=== PATIENT | male | born 1960 | race Caucasian/White ===

== ENCOUNTER 2016-10-26 17:37 | Emergency (ER) | payer OTHER ==
[~2016-10-26] VITALS: Ht 167.6 cm; Wt 49.9 kg
[~2016-10-26 17:37] MED LIST: ANAPROX DS550 MG PO; AUGMENTIN 875 M1 TAB PO; CIPRODEX 0.3%-7.5 ML OT; CLARITIN10 MG PO; MOTRIN800 MG PO
[2016-10-26] MEDS ORDERED: SERTRALINE HYD100 MG PO (17:57)
[2016-10-26] MEDS ORDERED: VENLAFAXINE HY150 M2 PO (17:57)
[2016-10-26] MEDS ORDERED: BUPROPION HCL150 M1 PO (17:57)
[2016-10-26] MEDS ORDERED: MIRTAZAPINE30 M2 PO (17:57)
== END 2016-10-26 19:53 | disposition home or self-care (01) ==
LOC: ED 17:37
DX: S61.032A Puncture wound without foreign body of left thumb without damage to nail, initial encounter (principal); Z29.12 Encounter for prophylactic antivenin; Z79.899 Other long term (current) drug therapy; W22.8XXA Striking against or struck by other objects, initial encounter; Y93.89 Activity, other specified; Y92.89 Other specified places as the place of occurrence of the external cause; Y99.9 Unspecified external cause status

== ENCOUNTER 2017-11-21 13:29 | Emergency (ER) | payer OTHER ==
[~2017-11-21] VITALS: Ht 167.6 cm; Wt 5.4 kg
[~2017-11-21 13:29] MED LIST changes: +BUPROPION HCL150 M1 PO; +MIRTAZAPINE30 M2 PO; +SERTRALINE HYD100 MG PO; +VENLAFAXINE HY150 M2 PO
[2017-11-21 14:09] LABS: BASO % 0.9 % (0.0-1.0); EOS % 0.9 % (1.0-4.0); HEMOGLOBIN 13.6 g/dl (14.0-18.0); LYMPH # 0.6 10*3/uL (1.3-4.4); MEAN CELL VOLUME 97.1 fl (80.0-94.0); MEAN PLATELET VOLUME 9.3 fl (9.6-12.3); MONO # 0.4 10*3/uL (0.1-1.0); MONO % 9.4 % (3.0-9.0); NEUT # 3.4 10*3/uL (2.3-7.9); NEUT % 74.6 % (47.0-73.0); PLATELET COUNT AUTOMATED 334 10*3/uL (130-400); RED BLOOD COUNT 4.12 10*6/uL (4.50-5.90); RED CELL DISTRI WIDTH 13.7 % (0-14.5); WHITE BLOOD COUNT 4.5 10*3/uL (4.8-10.8)
[2017-11-21 14:19] LABS: ACT PARTIAL THROMBO TIME 26.9 SECONDS (20.8-31.5)
[2017-11-21 14:27] LABS: ALBUMIN 4.3 gm/dl (3.1-4.5); ALKALINE PHOSPHATASE 78 U/L (45-117); BUN 7 mg/dl (7-24); CHLORIDE 103 mmol/L (98-107); CREATININE 0.79 mg/dL (0.70-1.30); POTASSIUM 3.7 mmol/L (3.5-5.1); SGOT/AST 16 IU/L (3-35); SGPT/ALT 20 U/L (12-78); SODIUM 139 mmol/L (136-145); TOTAL PROTEIN 7.7 gm/dL (6.4-8.2)
[2017-11-21 14:33] LABS: TROPONIN I < 0.015 ng/ml (<0.045)
== END 2017-11-21 18:35 | disposition short-term general hospital (02) ==
LOC: ED 13:29
PROVIDERS: Emergency Medicine
DX: G45.9 Transient cerebral ischemic attack, unspecified (principal); R53.1 Weakness; Z79.899 Other long term (current) drug therapy

== ENCOUNTER 2017-12-03 14:15 | Emergency (ER) | payer OTHER ==
[~2017-12-03] VITALS: Ht 170.1 cm; Wt 509.8 kg
[2017-12-03] MEDS ORDERED: SIMVASTATIN20 MG PO (15:53)
[2017-12-03] MEDS ORDERED: ASPIRIN CHEWABL81 MG PO (15:54)
[2017-12-03] MEDS ORDERED: TOPROL XL25 MG PO (15:54)
[2017-12-03 16:37] LABS: BASO % 0.5 % (0.0-1.0); EOS # 0.1 10*3/uL (0.0-0.4); EOS % 1.2 % (1.0-4.0); HEMATOCRIT 39.6 % (42.0-52.0); HEMOGLOBIN 12.9 g/dl (14.0-18.0); LYMPH # 0.8 10*3/uL (1.3-4.4); LYMPH % 12.3 % (27.0-41.0); MEAN CELL VOLUME 99.5 fl (80.0-94.0); MEAN CORPUSCULAR HGB 32.4 pg (27.0-31.0); MEAN CORPUSCULAR HGB CONC 32.6 g/dl (33.0-37.0); MEAN PLATELET VOLUME 8.7 fl (9.6-12.3); MONO # 0.6 10*3/uL (0.1-1.0); MONO % 9.5 % (3.0-9.0); NEUT # 4.6 10*3/uL (2.3-7.9); NEUT % 76.2 % (47.0-73.0); PLATELET COUNT AUTOMATED 296 10*3/uL (130-400); RED BLOOD COUNT 3.98 10*6/uL (4.50-5.90); RED CELL DISTRI WIDTH 13.5 % (0-14.5); WHITE BLOOD COUNT 6.1 10*3/uL (4.8-10.8)
[2017-12-03 16:46] LABS: ACT PARTIAL THROMBO TIME 25.7 SECONDS (20.8-31.5)
[2017-12-03 16:49] LABS: BUN 8 mg/dl (7-24); CHLORIDE 102 mmol/L (98-107); POTASSIUM 4.2 mmol/L (3.5-5.1); SODIUM 139 mmol/L (136-145)
== END 2017-12-03 19:13 | disposition short-term general hospital (02) ==
LOC: ED 14:15
PROVIDERS: Emergency Medicine
DX: I63.9 Cerebral infarction, unspecified (principal); Z79.899 Other long term (current) drug therapy; Z79.82 Long term (current) use of aspirin; Z86.73 Personal history of transient ischemic attack (TIA), and cerebral infarction without residual deficits

== ENCOUNTER 2017-12-23 16:52 | Inpatient (IN) | payer OTHER ==
[~2017-12-23] VITALS: Ht 167.6 cm; Wt 51.3 kg
[~2017-12-23 16:52] MED LIST changes: +ASPIRIN CHEWABL81 MG PO; +SIMVASTATIN20 MG PO; +TOPROL XL25 MG PO
[2017-12-23 16:55] VITALS: BP 145/80
[2017-12-23] MEDS ORDERED: PLAVIX75 M1 PO (17:02)
[2017-12-23] MEDS ORDERED: GARLIC1 EAC1 PO (17:03)
[2017-12-23 17:36] LABS: BASO % 0.8 % (0.0-1.0); EOS % 1.1 % (1.0-4.0); HEMATOCRIT 38.9 % (42.0-52.0); HEMOGLOBIN 13.4 g/dl (14.0-18.0); LYMPH # 0.6 10*3/uL (1.3-4.4); MEAN CORPUSCULAR HGB 33.1 pg (27.0-31.0); MEAN CORPUSCULAR HGB CONC 34.4 g/dl (33.0-37.0); MEAN PLATELET VOLUME 9.2 fl (9.6-12.3); MONO # 0.4 10*3/uL (0.1-1.0); MONO % 11.3 % (3.0-9.0); NEUT # 2.7 10*3/uL (2.3-7.9); NEUT % 71.3 % (47.0-73.0); PLATELET COUNT AUTOMATED 304 10*3/uL (130-400); RED BLOOD COUNT 4.05 10*6/uL (4.50-5.90); RED CELL DISTRI WIDTH 13.2 % (0-14.5); WHITE BLOOD COUNT 3.8 10*3/uL (4.8-10.8)
[2017-12-23 17:46] LABS: ACT PARTIAL THROMBO TIME 25.9 SECONDS (20.8-31.5)
[2017-12-23 17:52] LABS: ALBUMIN 4.3 gm/dl (3.1-4.5); ALKALINE PHOSPHATASE 62 U/L (45-117); BUN 19 mg/dl (7-24); CHLORIDE 91 mmol/L (98-107); LIPASE 148 U/L (73-393); POTASSIUM 4.3 mmol/L (3.5-5.1); SGOT/AST 19 IU/L (3-35); SGPT/ALT 31 U/L (12-78); SODIUM 128 mmol/L (136-145); TOTAL PROTEIN 7.6 gm/dL (6.4-8.2); TROPONIN I < 0.015 ng/ml (<0.045)
[2017-12-23 19:45] VITALS: BP 134/74
[2017-12-23 20:00] VITALS: BP 134/74
[2017-12-23] MEDS ORDERED: VITAMIN B-650 M1 PO (21:00)
[2017-12-23] MEDS ORDERED: VITAMIN B-12500 MC3 SL (21:03)
[2017-12-24] VITALS: BP 109/77
[2017-12-24 06:42] LABS: EOS # 0.1 10*3/uL (0.0-0.4); EOS % 1.9 % (1.0-4.0); HEMATOCRIT 38.2 % (42.0-52.0); LYMPH # 0.8 10*3/uL (1.3-4.4); LYMPH % 26.1 % (27.0-41.0); MEAN PLATELET VOLUME 9.4 fl (9.6-12.3); MONO # 0.5 10*3/uL (0.1-1.0); MONO % 14.8 % (3.0-9.0); NEUT # 1.7 10*3/uL (2.3-7.9); NEUT % 55.9 % (47.0-73.0); PLATELET COUNT AUTOMATED 296 10*3/uL (130-400); RED BLOOD COUNT 3.94 10*6/uL (4.50-5.90); RED CELL DISTRI WIDTH 13.3 % (0-14.5); WHITE BLOOD COUNT 3.1 10*3/uL (4.8-10.8)
[2017-12-24 07:13] LABS: BUN 14 mg/dl (7-24); CHLORIDE 98 mmol/L (98-107); CHOLESTEROL 116 mg/dL (<200); CREATININE 0.67 mg/dL (0.70-1.30); HDL CHOLESTEROL 34 mg/dl (40-60); LDL CHOLESTEROL 63 mg/dL (9-159); PHOSPHOROUS 3.7 mg/dL (2.5-4.9); POTASSIUM 4.5 mmol/L (3.5-5.1); SODIUM 134 mmol/L (136-145); TRIGLYCERIDES 94 mg/dl (<150); VLDL CHOLESTEROL 19 mg/dL (6-40)
[2017-12-24 07:56] LABS: VITAMIN D, 25-HYDROXY 24.3 ng/mL (30-100)
[2017-12-24 08:00] VITALS: BP 122/70
== END 2017-12-24 10:19 | disposition home or self-care (01) | DRG 641 ==
LOC: ED 16:52 → EDHOLD 18:25 → 4E 19:20
PROVIDERS: Emergency Medicine; Internal Medicine
DX: E87.1 Hypo-osmolality and hyponatremia (principal); R65.10 Systemic inflammatory response syndrome (SIRS) of non-infectious origin without acute organ dysfunction; E83.41 Hypermagnesemia; R73.9 Hyperglycemia, unspecified; D72.810 Lymphocytopenia; D53.9 Nutritional anemia, unspecified; I10 Essential (primary) hypertension; E78.5 Hyperlipidemia, unspecified; Z86.73 Personal history of transient ischemic attack (TIA), and cerebral infarction without residual deficits; Z79.899 Other long term (current) drug therapy; Z83.3 Family history of diabetes mellitus; Z80.9 Family history of malignant neoplasm, unspecified

== ENCOUNTER → 2018-01-01 | Outpatient (CLI) | payer OTHER ==
[~2018-01-01] MED LIST changes: +GARLIC1 EAC1 PO; +PLAVIX75 M1 PO; +VITAMIN B-12500 MC3 SL; +VITAMIN B-650 M1 PO
[2018-01-01 11:35] LABS: HEMOGLOBIN 12.4 g/dl (14.0-18.0); MEAN CELL VOLUME 100.8 fl (80.0-94.0); MEAN CORPUSCULAR HGB 32.9 pg (27.0-31.0); MEAN CORPUSCULAR HGB CONC 32.6 g/dl (33.0-37.0); MEAN PLATELET VOLUME 8.8 fl (9.6-12.3); RED BLOOD COUNT 3.77 10*6/uL (4.50-5.90); RED CELL DISTRI WIDTH 13.6 % (0-14.5); WHITE BLOOD COUNT 2.9 10*3/uL (4.8-10.8)
[2018-01-01 11:41] LABS: ALBUMIN 4.2 gm/dl (3.1-4.5); BUN 8 mg/dl (7-24); CHLORIDE 105 mmol/L (98-107); CHOLESTEROL 99 mg/dL (<200); CPK 52 U/L (39-308); CREATININE 0.89 mg/dL (0.70-1.30); POTASSIUM 4.2 mmol/L (3.5-5.1); SGOT/AST 12 IU/L (3-35); SGPT/ALT 29 U/L (12-78); SODIUM 141 mmol/L (136-145); TOTAL PROTEIN 7.5 gm/dL (6.4-8.2); TRIGLYCERIDES 134 mg/dl (<150); VLDL CHOLESTEROL 27 mg/dL (6-40)
[2018-01-01 11:44] LABS: ALKALINE PHOSPHATASE 63 U/L (45-117); HDL CHOLESTEROL 36 mg/dl (40-60); LDL CHOLESTEROL 36 mg/dL (9-159)
== END | disposition home or self-care (01) ==
LOC: LAB 10:35
PROVIDERS: Family Medicine
DX: Z12.5 Encounter for screening for malignant neoplasm of prostate (principal); E78.00 Pure hypercholesterolemia, unspecified; G45.9 Transient cerebral ischemic attack, unspecified; R53.83 Other fatigue; R51 Headache

== ENCOUNTER 2018-07-06 17:16 | Emergency (ER) | payer OTHER ==
--- NOTE | ~2018-07-06 | EKG ---
[place], [place] ELECTROCARDIOGRAM REPORT NAME: EDEL HENRY UNIT #: [id number] ROOM: DOCTOR: EPIPHANY DRAFT REPORT BIRTHDATE: [birth year] [facility] Test Date: 2018-07-06 Test Time: 17:44:00 Pat Name: EDEL HENRY Department: er Room: 7 Gender: M Corporate Sales Representative: EKG.LA : 1960 Requested By: EVELIO FITZPATRICK Order Number: [id number] Reading MD: Phill Morrow MD Measurements Intervals [place] Rate: 103 P: 61 MN: 126 QRS: -9 QRSD: 89 T: 39 QT: 332 QTc: 435 Interpretive Statements Sinus tachycardia Abnormal R-wave progression, early transition Minimal ST depression, lateral leads Electronically Signed On 07-08-2018 9:24:35 PST by Phill Morrow MD CM:EKGRPT:ELECTROCARDIOGRAM REPORT [id number] EVELIO RUELAS DRAFT REPORT EVELIO FITZPATRICK M.D.
[2018-07-06] MEDS ORDERED: ASPIRIN CHEWABL81 MG PO (17:20)
[2018-07-06 17:49] LABS: BASO % 0.5 % (0.0-1.0); EOS % 0.3 % (1.0-4.0); HEMATOCRIT 42.7 % (42.0-52.0); HEMOGLOBIN 14.5 g/dl (14.0-18.0); LYMPH # 0.6 10*3/uL (1.3-4.4); LYMPH % 9.5 % (27.0-41.0); MEAN CELL VOLUME 99.1 fl (80.0-94.0); MEAN CORPUSCULAR HGB 33.6 pg (27.0-31.0); MEAN PLATELET VOLUME 9.7 fl (9.6-12.3); MONO # 0.4 10*3/uL (0.1-1.0); MONO % 6.7 % (3.0-9.0); NEUT # 4.8 10*3/uL (2.3-7.9); NEUT % 82.8 % (47.0-73.0); PLATELET COUNT AUTOMATED 301 10*3/uL (130-400); RED BLOOD COUNT 4.31 10*6/uL (4.50-5.90); RED CELL DISTRI WIDTH 12.7 % (0-14.5); WHITE BLOOD COUNT 5.8 10*3/uL (4.8-10.8)
[2018-07-06 18:04] LABS: ALBUMIN 4.4 gm/dl (3.1-4.5); ALKALINE PHOSPHATASE 72 U/L (45-117); BUN 13 mg/dl (7-24); CHLORIDE 100 mmol/L (98-107); CREATININE 0.84 mg/dL (0.70-1.30); POTASSIUM 3.5 mmol/L (3.5-5.1); SGOT/AST 13 IU/L (3-35); SGPT/ALT 18 U/L (12-78); SODIUM 136 mmol/L (136-145); TOTAL PROTEIN 7.8 gm/dL (6.4-8.2)
[2018-07-06 18:12] LABS: THYROID STIM HORMONE (HS) 0.806 uIU/ml (0.358-4.75)
[2018-07-06 18:24] LABS: BILIRUBIN 1+ (NEGATIVE); BLOOD 2+ (NEGATIVE); CLARITY CLEAR (CLEAR); COLOR YELLOW (YELLOW); GLUCOSE NEGATIVE (NEGATIVE); KETONE 3+ (NEGATIVE); LEUKO ESTERASE NEGATIVE (NEGATIVE); NITRITE NEGATIVE (NEGATIVE); PH 5.5 (5.0-9.0); SPECIFIC GRAVITY 1.025 (1.005-1.030); UROBILINOGEN 0.2 E.U./dl (0.2-1.0)
[2018-07-06 18:33] LABS: WBC 0-2 wbc/hpf (0-5)
[2018-07-06 18:34] LABS: BACTERIA 1+; URIC ACID CRYSTALS TR
[2018-07-06] MEDS ORDERED: MELATONIN10 M2 PO (18:56)
== END 2018-07-06 19:00 | disposition home or self-care (01) ==
LOC: ED 17:16
PROVIDERS: Emergency Medicine
DX: G47.00 Insomnia, unspecified (principal); R53.83 Other fatigue; R52 Pain, unspecified; H93.13 Tinnitus, bilateral; R35.0 Frequency of micturition; I10 Essential (primary) hypertension; E78.5 Hyperlipidemia, unspecified; Z86.718 Personal history of other venous thrombosis and embolism; Z79.82 Long term (current) use of aspirin

== ENCOUNTER → 2018-08-07 | Outpatient (CLI) | payer OTHER ==
[~2018-08-07] MED LIST changes: +MELATONIN10 M2 PO
== END ==
LOC: RESCLI 01:26
DX: Z12.11 Encounter for screening for malignant neoplasm of colon (principal); E78.5 Hyperlipidemia, unspecified; I10 Essential (primary) hypertension; Z86.73 Personal history of transient ischemic attack (TIA), and cerebral infarction without residual deficits; Z79.899 Other long term (current) drug therapy; Z88.8 Allergy status to other drugs, medicaments and biological substances

== ENCOUNTER 2024-08-18 11:32 | Emergency (ER) | payer MEDICAID ==
[~2024-08-18] VITALS: Ht 167.6 cm; Wt 46.1 kg
[2024-08-18] MEDS ORDERED: FLAX SEED OIL1000 MG PO (12:05)
[2024-08-18] MEDS ORDERED: CURCUMIN PHYTO500 MG PO (12:05)
[2024-08-18] MEDS ORDERED: MELOXICAM15 MG PO (14:27)
== END 2024-08-18 14:35 | disposition home or self-care (01) ==
LOC: ED 11:32
DX: M25.512 Pain in left shoulder (principal); R51.9 Headache, unspecified; I10 Essential (primary) hypertension; F32.A Depression, unspecified; W01.198A Fall on same level from slipping, tripping and stumbling with subsequent striking against other object, initial encounter